=== PATIENT | male | born 1955 | race Caucasian/White ===

== ENCOUNTER 2019-11-28 12:20 | Emergency (ER) | payer OTHER ==
--- OUTSIDE RECORDS SUMMARY | 2019-11-28 12:22 | XMS REPORT | Summary of Care ---
:1955 Author Organization [facility] Address [address] [place] [id number] Care Team Providers Name Role Phone [facility], [facility] Med Primary Care Provider Reason for Referral Radiology Services (STAT) Status Reason Specialty Diagnoses / Referred By Referred To Procedures Contact Contact New Request Diagnostic Diagnoses Hip pain, right Davis, Angelina S, Radiology Procedures XR PELVIS <[address] [place] [address] Radiology Services (STAT) Status Reason Specialty Diagnoses / Referred By Referred To Procedures Contact Contact New Request Diagnostic Diagnoses Hip pain, right Davis, Angelina S, Radiology Procedures XR HIPS 2 VW RIGHT [address] [place] [place] [address] Radiology Services (STAT) Status Reason Specialty Diagnoses / Referred By Referred To Procedures Contact Contact New Request Diagnostic Diagnoses Hip pain, right Davis, Angelina S, Radiology Procedures XR PELVIS <[address] [place] [place] [address] Radiology Services (STAT) Status Reason Specialty Diagnoses / Referred By Referred To Procedures Contact Contact New Request Diagnostic Diagnoses Hip pain, right Davis, Angelina S, Radiology Procedures XR HIPS 2 VW RIGHT [address] [place] [address] Reason for Visit Reason Comments Knee Pain Auth/Cert Status Reason Specialty Diagnoses / Referred By Referred To Procedures Contact Contact [facility] [address] [place] [address] [place] [address] Encounter Details Date Type Department Care Team Description 07/21/2019 Emergency [facility]-Emergency DavisAngelina S, PAC Hip pain, right Department [address] [facility] (Primary Dx) [address] [place] [address] [place] [address] [phone] Allergies Active Allergy Reactions Severity Noted Date Comments Tramadol Hallucinations 03/20/2016 documented as of this encounter (statuses as of 07/21/2019) Medications Medication Sig Dispensed Refills Start Date End Date Status QUEtiapine Take 25 mg by 0 Active (SEROQUEL) 50 mg mouth at bedtime. tablet traZODONE (DESYREL) Take 50 mg by 0 Active 50 mg tablet mouth at bedtime. meloxicam (MOBIC) Take 7.5 mg by 0 Active 7.5 mg tablet mouth daily. amLODIPine (NORVASC) Take 5 mg by mouth 0 Active 5 mg tablet daily. gabapentin Take 2 capsules by 180 capsule 5 03/20/2016 Active (NEURONTIN) 300 mg mouth 3 (three) capsule times daily. naproxen (NAPROSYN) Take 1 tablet by 60 tablet 2 05/12/2016 Active 500 mg tablet mouth 2 (two) times daily with meals. memantine HCl Take by mouth. 0 Active (MEMANTINE ORAL) documented as of this encounter (statuses as of 07/21/2019) Active Problems Problem Noted Date Essential hypertension 03/20/2016 Osteoarthritis of multiple joints 03/20/2016 Cervical disc disease 03/20/2016 Lumbar disc disease 03/20/2016 Bilateral hearing loss 03/20/2016 Insomnia 03/20/2016 PTSD (post-traumatic stress disorder) 03/20/2016 documented as of this encounter (statuses as of 07/21/2019) Social History Tobacco Use Types Packs/Day Years Used Date Former Smoker Quit: 03/20/1983 Smokeless Tobacco: Never Used Alcohol Use Drinks/Week oz/Week Comments Yes occasionally Sex Assigned at Date Recorded Not on file Job Start Date Occupation Industry Not on file Not on file Not on file Travel History Travel Start Travel End No recent travel history available. documented as of this encounter Last Filed Vital Signs Vital Sign Reading Time Taken Comments Blood Pressure 154/97 07/21/2019 2:02 PM CDT Pulse 80 07/21/2019 2:02 PM CDT Temperature 36.9 C (98.4 F) 07/21/2019 2:02 PM CDT Respiratory Rate 16 07/21/2019 2:02 PM CDT Oxygen Saturation 97% 07/21/2019 2:02 PM CDT Inhaled Oxygen Concentration - - Weight 99.8 kg (220 lb) 07/21/2019 2:02 PM CDT Height - - Body Mass Index 30.68 07/31/2018 12:56 PM CDT documented in this encounter Discharge Instructions Angelina Thomson, PAC - 07/21/2019Continue taking the medication you have been prescribed for pain. Follow up with your specialist forfurther evaluation of your hip pain if it continues. Return to the ER if you develop inability to control your urine or bowel movements, if you develop numbness to your groin or if you develop difficulty walking because leg or foot weakness. documented in this encounter Plan of Treatment Health Maintenance Due Date Last Done Comments HEPATITIS C (HCV) SCREEN 1955 DTaP,Tdap,and Td Vaccines (1 - 1973 Tdap) COLONOSCOPY 2004 Zoster Recombinant Vaccine 2004 (SHINGRIX) (1 of 2) INFLUENZA VACCINE (Retired 07/31/2019 version) PNEUMOCOCCAL 0-64 YEARS COMBINED Aged Out No longer eligible based on SERIES patient's age to complete this topic documented as of this encounter Procedures Procedure Name Priority Date/Time Associated Diagnosis Comments XR HIPS 2 VW RIGHT STAT 07/21/2019 3:59 PM Hip pain, right Results for this CDT procedure are in the results section. XR PELVIS <3 VW STAT 07/21/2019 3:59 PM Hip pain, right Results for this CDT procedure are in the results section. NOTICE OF PRIVACY Routine 07/21/2019 1:54 PM PRACTICES CDT documented in this encounter Results XR HIPS 2 VW RIGHT (07/21/2019 3:59 PM CDT) Specimen Narrative Performed At HISTORY:Pain. PACS/VR/DOSE FINDINGS: AP and lateral views of right hip showed no acute fracture or dislocation. Mild degenerative arthritis of the hip joint noted with narrowing of inferomedial joint space, minimal narrowing of upper weightbearing joint space and mild irregularity in the articular edges of acetabulum and inferior edge of the head of the femur. No signs of AVN in the femoral head or aggressive bone lesions seen. CONCLUSIONS: Mild arthritis of right hip. No acute findings. Procedure Note [facility], Radiant Results Inft User - 07/21/2019 4:06 PM CDT HISTORY: Pain. FINDINGS: AP and lateral views of right hip showed no acute fracture or dislocation. Mild degenerative arthritis of the hip joint noted with narrowing of inferomedial joint space, minimal narrowing of upper weightbearing joint space and mild irregularity in the articular edges of acetabulum and inferior edge of the head of the femur. No signs of AVN in the femoral head or aggressive bone lesions seen. CONCLUSIONS: Mild arthritis of right hip. No acute findings. Performing Organization Address City/State/Zipcode Phone Number PACS/VR/DOSE XR PELVIS <3 VW (07/21/2019 3:59 PM CDT) Specimen Narrative Performed At HISTORY:Pain. PACS/VR/DOSE FINDINGS: AP view of the pelvis showed no acute fracture or dislocation. No aggressive bone lesions seen. Degenerative disc disease noted at L4-L5 and L5-S1. Sacroiliac joints appear normal. CONCLUSIONS: No acute fracture or dislocation in AP view of the pelvis. Procedure Note [facility], Radiant Results Inft User - 07/21/2019 4:05 PM CDT HISTORY: Pain. FINDINGS: AP view of the pelvis showed no acute fracture or dislocation. No aggressive bone lesions seen. Degenerative disc disease noted at L4-L5 and L5-S1. Sacroiliac joints appear normal. CONCLUSIONS: No acute fracture or dislocation in AP view of the pelvis. Performing Organization Address City/State/Zipcode Phone Number PACS/VR/DOSE documented in this encounter Visit Diagnoses Diagnosis Hip pain, right - Primary Pain in joint, pelvic region and thigh documented in this encounter Insurance Payer Benefit Plan / Subscriber ID Effective Phone Address Type Group Dates [employer] - MANAGED CHOICE CARE [id number] 2019-Pre Medicare MEDICARE sent Adv PPO [employer] [id number] 2001-P HMO/PPO/POS ADMINISTRATION ADMINISTRATION resent documented as of this encounter
--- OUTSIDE RECORDS SUMMARY | 2019-11-28 12:22 | XMS REPORT | Encounter Summary ---
:1955 Author Reason for Visit Follow Up Visit Instructions 1. Sinusitis prednisone 20 mg tablet Flonase Allergy Relief 50 mcg/actuation nasal spray,suspension 2. Nasal obstruction 3. Hypertrophy of nasal turbinates 4. Hearing loss 5. Tinnitus tympanogram 6. Deviated nasal septum 7. Headache Discussion Note: None recorded.Patient educational handouts: No information available. Plan of Care Patient Instructions Patient discharged with the following per Dr. Colmenares Patient is to use the nasal irrigation and nasogel in each nostril bid for 1-2 months Patient is to start prednisone as directed with food Follow up PRN basis Patient will call back to schedule appt if symptoms are not improved If any other problems patient is to call my office Patient verbalized understanding the instructions given along with my office staff Reminders Provider Appointments None recorded. Lab None recorded. Referral None recorded. Procedures None recorded. Surgeries None recorded. Imaging Tympanogram In-House Results 11/12/2018 Medications Name Start Date allopurinol 100 mg tablet Take 1 tablet every day by oral route. amlodipine 5 mg tablet Take 1 tablet every day by oral route. azelastine 137 mcg (0.1 %) nasal spray aerosol Rohwer 2 sprays twice a day by intranasal route. capsaicin 0.025 % topical cream APPLY TO THE AFFECTED AREA(S) BY TOPICAL ROUTE 3 TIMES PER DAY cyclobenzaprine 10 mg tablet Take 1 tablet 3 times a day by oral route. diclofenac 1 % topical gel APPLY 2 GRAM TO THE AFFECTED AREA(S) BY TOPICAL ROUTE 4 TIMES PER DAY etodolac 400 mg tablet Take 1 tablet twice a day by oral route. Flonase Allergy Relief 50 mcg/actuation nasal spray,suspension Inhale 1 spray twice a day by intranasal route for 30 days. Fluticasone Propionate (Nasal) 50 mcg/DOSE inhaler Rohwer 1 spray every day by intranasal route. ipratropium bromide 0.03 % nasal spray Rohwer 2 sprays twice a day by intranasal route. lidocaine 5 % medicated patch and dimethicone 5 % topical cream memantine 10 mg tablet Take 1 tablet twice a day by oral route. nortriptyline 25 mg capsule Take 1 capsule 3 times a day by oral route. prednisone 20 mg tablet Take one tablet by mouth bid for 7 days with meals then once a day for 7 days with meals trazodone 100 mg tablet Take 1 tablet twice a day by oral route. Medications Administered None recorded. Vitals Height Weight BMI Blood Pressure 5 ft 11 in 239 lbs 33.3 kg/m2 160/101 mm[Hg] Lab Results Date Name Specimen Result Interpretation Description Value Range Status Address 11/12/2018 Tympanogram Right Type A In-House Normal Results: For Internal Use Only Left Type A In-House Normal Results: For Internal Use Only Allergies Code Code System Name Reaction Severity Status Onset 09749 RxNorm Tramadol Active Problems Name Status Onset Date Source Tinnitus Active Encounter Hearing Loss Active Encounter Deviated Nasal Septum Active Encounter Sinusitis Active Encounter Nasal Obstruction Active Encounter Headache Active Encounter Frontal Headache Active Encounter Hypertrophy of Nasal Turbinates Active Encounter Procedures Date Name Performed by Hernia Repair Information not available Procedure on Wrist Information not available 11/12/2018 Tympanogram In-House Results For Internal Use Only [address] Vaccine List None recorded. Social History Smoking Status Former Smoker Past Encounters 11/12/2018 Sinusitis; Nasal Obstruction; Hypertrophy of Nasal Turbinates; Hearing Loss; Tinnitus; Deviated Nasal Septum; Headache Dinorah Colmenares MD: [address] [place] [address], [address], [place] [address], Ph. History of Present Illness None recorded. Review of Systems ENT ROS Reported By: Patient ENMT: ENMT: hearing loss, sinus pressure, congestion, runny nose; ringing in both ears Physical Exam ENT Exam Darrian Focus-No Stethoscope Reported By: Patient
--- OUTSIDE RECORDS SUMMARY | 2019-11-28 12:22 | XMS REPORT ---
:1955 Author Organization [facility] Address [address] [place] [address] Care Team Providers Name Role Phone Unavailable Unavailable Unavailable Payers Payer Name Policy Type Policy Number Effective Date Expiration Date Problems This patient has no known problems. Allergies, Adverse Reactions, Alerts Allergy Name Allergy Status Severity Reaction(s) Onset Inactive Treating Comments Type Date Date Clinician Tricyclic DA Active U 2019-10 Compounds 00:00:0 0 NSAIDS DA Active U 2019-10 (Non-Steroida -13 l 00:00:0 Anti-Inflamma 0 allopurinol DA Active U 2019-10 00:00:0 0 tramadol DA Active U 2019-10 00:00:0 0 Medications This patient has no known medications.
[2019-11-28] MEDS ORDERED: ONDANSETRON 4 MG/2 ML VIAL ONE (13:59)
[2019-11-28] MEDS ORDERED: MORPHINE 2 MG/ML SYR ONE ×2 (13:59→14:38)
[2019-11-28] MEDS ORDERED: NA CHLORIDE 0.9% 1,000 ML ONE (14:00)
[2019-11-28] MEDS ORDERED: CIPROFLOXACIN 400mg IV 400 MG/200 ML BAG IV ONE (14:00)
[2019-11-28] MEDS ORDERED: METRONIDAZOLE 500mg IVPB 500 MG/100 ML BAG IV ONE (14:00)
[2019-11-28 14:15] LABS: Absolute Lymphocytes (CBC) 2.5 K/uL (0.7-4.9); Basophils % 0.7 % (0-1.3); Hematocrit 43.5 % (39.6-49.0); Lymphocytes % 32.6 % (15.3-44.8); MPV 9.5 fL (7.6-11.3); RBC Red Blood Cell Count 4.72 M/uL (4.33-5.43)
[2019-11-28 14:23] LABS: Protime INR 1.01
--- NOTE | 2019-11-28 14:24 | RAD REPORT ---
EXAM DESCRIPTION: RAD - Chest Single View - 11/28/2019 2:15 pm CLINICAL HISTORY: Abdominal pain, abdominal distention COMPARISON: None. TECHNIQUE: AP portable chest image was obtained 1408 hours . FINDINGS: Lungs are clear. Heart and vasculature are normal. No measurable pleural effusion and no p neumothorax. No acute bony abnormality seen. No acute aortic findings suspected. IMPRESSION: No acute cardiopulmonary process.
[2019-11-28 14:40] LABS: ALT/SGPT 29 U/L (12-78); AST/SGOT 23 U/L (15-37); Albumin 4.1 g/dL (3.4-5.0); Alkaline Phosphatase 72 U/L (45-117); BUN Blood Urea Nitrogen 5 mg/dL (7-18); Bicarbonate 28 mmol/L (21-32); Bilirubin Direct 0.2 mg/dL (0-0.2); Glucose Level 94 mg/dL (74-106); Lipase 241 U/L (73-393); NT PRO-BNP 69 pg/mL (<125); Potassium 3.9 mmol/L (3.5-5.1); Protein, Total 6.9 g/dL (6.4-8.2); Sodium Level 142 mmol/L (136-145); Troponin (Emerg Dept Use Only) < 0.02 ng/mL (0.0-0.045)
--- NOTE | 2019-11-28 15:35 | EKG ---
Test Date: 2019-11-28 Test Time: 13:56:17 Shader And Toner: ERIK MEASUREMENT RESULTS: Intervals: Rate: 58 DE: 178 QRSD: 96 QT: 436 QTc: 428 [place]: P: 59 DE: 178 QRS: -5 T: 21 INTERPRETIVE STATEMENTS: Sinus bradycardia Nonspecific T wave abnormality Abnormal ECG No previous ECG available for comparison Electronically Signed On 11-28-19 15:34:20 [employer]FFEE [employer]OP AIDE by Ochoa Zamorano
[2019-11-28 16:06] LABS: Urine Blood NEGATIVE (NEG); Urine Glucose NEGATIVE (NEG); Urine Protein NEGATIVE (NEG); Urine Specific Gravity 1.015 (1.005-1.030)
--- NOTE | 2019-11-28 16:34 | RAD REPORT ---
EXAM DESCRIPTION: CT - Abdomen Pelvis W Contrast - 11/28/2019 4:16 pm CLINICAL HISTORY: Abdominal pain. COMPARISON: None. TECHNIQUE: Computed axial tomography of the abdomen and pelvis was obtained. 100 cc Isovue-300 is ad ministered intravenously. Oral contrast was given. All CT scans are performed using dose optimization technique as appropriate and may include automated exposure control or mA/KV adjustment according to patient size. FINDINGS: Mild hepatic fatty infiltration. Several hypervascular hepatic lesions. The largest measures approxim ately 3.8 centimeters. The spleen, pancreas, adrenals and kidneys appear unremarkable The appendix is normal caliber. There is no evidence of diverticulitis Small umbilical hernia has not neck 17 millimeters. IMPRESSION: Several hypervascular hepatic lesions. It is recommended that the patient have a nonemer gent MRI of the liver Small umbilical hernia
--- NOTE | 2019-11-28 16:39 | ER ---
Nurse's Notes [facility] Name: Layton Correa Age: 64 yrs Sex: Male : 1955 Arrival Date: 11/28/2019 Time: 12:23 Bed 19 Private MD: Diagnosis: Gastrointestinal hemorrhage, unspecified;Abdominal tenderness Presentation: 11/28 12:48 Presenting complaint: Patient states: This AM large Blood clot reported with BM, sg reports having hx of H.Pylori and GERD, as well as heart problems that are treated by a cardio in [place], reports abd pain in the lower quadrants as well. Transition of care: patient was not received from another setting of care. Onset of symptoms was November 28, 2019. Risk Assessment: Do you want to hurt yourself or someone else? Patient reports no desire to harm self or others. Initial Sepsis Screen: Does the patient meet any 2 criteria? No. Patient's initial sepsis screen is negative. Does the patient have a suspected source of infection? Yes: Acute abdominal pain. Care prior to arrival: None. 12:48 Method Of Arrival: Wheelchair 12:48 Acuity: VICTOR M 3 sg Historical: - Allergies: 12:50 No Known Allergies; sg 13:01 tramadol; tw2 13:01 tricycline abx; tw2 - Home Meds: 13:01 aspirin 81 mg Oral chew 1 tab once daily [Active]; pregabalin 100 mg Oral 1 cap daily tw2 [Active]; losartan 100 mg oral tab 1 tab once daily [Active]; metoprolol tartrate 25 mg Oral tab 1 tab once daily [Active]; Cymbalta 20 mg oral cpDR 1 cap 2 times per day [Active]; amlodipine 5 mg tab 1 tab once daily [Active]; memantine 10 mg oral tab 1 tab 2 times per day [Active]; allopurinol 100 mg Oral tab 1 tab once daily [Active]; indomethacin 25 mg Oral cap 1 cap 3 times per day [Active]; - PMHx: 12:50 Bradycardia; Back pain; GERD; sg 13:01 Back pain; BRADYCARDIA; GERD; h. pylori; Hypertension; tw2 - Immunization history:: Adult Immunizations up to date, Adult Immunizations. - Social history:: Smoking status: Patient/guardian denies using tobacco, Smoking status: . - Ebola Screening: : Patient negative for fever greater than or equal to 101.5 degrees Fahrenheit, and additional compatible Ebola Virus Disease symptoms Patient denies exposure to infectious person Patient denies travel to an Ebola-affected area in the 21 days before illness onset No symptoms or risks identified at this time Patient denies travel to an Ebola-affected area in the 21 days before illness onset. Screenin:22 Abuse screen: Denies threats or abuse. Nutritional screening: No deficits noted. tw2 Nutritional screening: No deficits noted. Tuberculosis screening: No symptoms or risk factors identified. Fall Risk Secondary diagnosis (15 points) impaired mobility. Assessment: 12:45 General: Appears in no apparent distress. well groomed, Behavior is calm, cooperative, tw2 appropriate for age. Pain: Complains of pain in abdomen. Neuro: Level of Consciousness is awake, alert, obeys commands, Oriented to person, place, time, situation. Cardiovascular: Heart tones S1 S2 Capillary refill < 3 seconds. Respiratory: Airway is patent Respiratory effort is even, unlabored, Respiratory pattern is regular, symmetrical, Breath sounds are clear bilaterally. GI: Abdomen is round non-distended, obese, Bowel sounds present X 4 quads. Abd is soft X 4 quads. : No signs and/or symptoms were reported regarding the genitourinary system. EENT: No signs and/or symptoms were reported regarding the EENT system. Derm: Skin is dry, Skin temperature is warm. Musculoskeletal: Circulation, motion, and sensation intact. Range of motion: limited in left knee and right knee. 13:51 Reassessment: Patient appears in no apparent distress at this time. No changes from tw2 previously documented assessment. Patient and/or family updated on plan of care and expected duration. Pain level reassessed. Patient is alert, oriented x 3, equal unlabored respirations, skin warm/dry/pink. 14:54 Reassessment: Oral Contrast completed. CT notified. ca1 15:05 Reassessment: Patient appears in no apparent distress at this time. Patient and/or tw2 family updated on plan of care and expected duration. Pain level reassessed. Patient is alert, oriented x 3, equal unlabored respirations, skin warm/dry/pink. Patient states feeling better. 16:22 Reassessment: Patient appears in no apparent distress at this time. No changes from tw2 previously documented assessment. Patient and/or family updated on plan of care and expected duration. Pain level reassessed. Patient is alert, oriented x 3, equal unlabored respirations, skin warm/dry/pink. Vital Signs: 12:49 BP 142 / 70; Pulse 42; Resp 17; Pulse Ox 96% on R/A; Weight 79.83 kg; Height 6 ft. 0 sg in. (182.88 cm); Pain 7/10; 13:50 BP 139 / 92; Pulse 57; Resp 17; Temp 98.1(TE); Pulse Ox 95% on R/A; tw2 15:05 BP 152 / 82; Pulse 60; Resp 17; Pulse Ox 95% on R/A; tw2 16:21 BP 142 / 96; Pulse 59; Resp 17; Pulse Ox 95% on R/A; tw2 12:49 Body Mass Index 23.87 (79.83 kg, 182.88 cm) ED Course: 12:23 Patient arrived in ED. rg4 12:33 Arm band placed on. sg 12:49 Triage completed. sg 12:50 Lisseth Landry RN is Primary Nurse. tw2 12:50 Christopher Craig MD is Attending Physician. tasneem 13:48 Patient has correct armband on for positive identification. Placed in gown. Bed in low mh5 position. Call light in reach. Side rails up X 1. Adult w/ patient. Warm blanket given. playground monitor on. Pulse ox on. NIBP on. 14:07 Initial lab(s) drawn, by me, sent to lab. Inserted saline lock: 20 gauge in right mh5 antecubital area, using aseptic technique. 14:08 Lipase Sent. 5 14:08 Basic Metabolic Panel Sent. 5 14:08 CBC with Diff Sent. 5 14:08 LFT's Sent. 5 14:08 Magnesium Sent. 5 14:09 NT PRO-BNP Sent. 5 14:09 Troponin (emerg Dept Use Only) Sent. 5 14:09 PT-INR Sent. 5 14:11 XRAY Chest (1 view) In Process Unspecified. EDMS 16:[address] via wheelchair. vm2 16:16 CT Abd/Pelvis - PO and IV Contrast In Process Unspecified. EDMS 16:37 Filemon Garcia MD is Referral Physician. tasneem 16:56 Awaiting transportation, Awaiting: prior to discharge. tw2 17:37 No provider procedures requiring assistance completed. IV discontinued, intact, tw2 bleeding controlled, No redness/swelling at site. Pressure dressing applied. Administered Medications: 14:05 Drug: Zofran 4 mg Route: IVP; Site: right antecubital; tw2 14:43 Follow up: Response: No adverse reaction; Nausea is decreased tw2 14:07 Drug: morphine 2 mg {Note: rass 0.} Route: IVP; Site: right antecubital; tw2 14:38 Follow up: Response: No adverse reaction; Pain is unchanged, physician notified; RASS: tw2 Alert and Calm (0) 14:09 Drug: NS 0.9% 1000 ml Route: IV; Rate: 1 bolus; Site: right antecubital; tw2 15:50 Follow up: Response: No adverse reaction; IV Status: Completed infusion; IV Intake: tw2 1000ml 14:09 Drug: Flagyl 500 mg Volume: 100 ml; Route: IVPB; Rate: 200 ml/hr; Infused Over: 30 tw2 mins; Site: right antecubital; 14:43 Follow up: Response: No adverse reaction; IV Status: Completed infusion tw2 14:40 Drug: morphine 2 mg Route: IVP; Site: right antecubital; tw2 16:55 Follow up: Response: No adverse reaction; Pain is decreased; RASS: Alert and Calm (0) tw2 14:43 Drug: Cipro 400 mg Volume: 200 ml; Route: IVPB; Infused Over: 60 mins; Site: right tw2 antecubital; 15:44 Follow up: Response: No adverse reaction; IV Status: Completed infusion tw2 Intake: 15:50 IV: 1000ml; Total: 1000ml. tw2 Output: 15:34 Urine: 400ml (Voided); Total: 400ml. ca1 16:21 Urine: 600ml (Voided); Total: 1000ml. tw2 Outcome: 16:38 Discharge ordered by . tasneem 17:37 Patient left the ED. tw2 17:37 Discharged to home ambulatory, personal aid tw2 17:37 Condition: stable 17:37 Discharge instructions given to patient, Instructed on discharge instructions, follow up and referral plans. no drinking with medication, no driving heavy equipment, medication usage, Demonstrated understanding of instructions, follow-up care, medications, Prescriptions given X 4. Signatures: Dispatcher [employer] Eros Paredes RN RN Christopher Still MD MD cha Wise, Tara, RN RN tw2 [facility] Rosa Ricketts [facility] Naomie Cortez [facility] Ling Barillas RN RN ca1 Corrections: (The following items were deleted from the chart) 12:42 12:36 BP 128 / 94; Pulse 101bpm; Resp 18bpm; Pulse Ox 98% RA; Temp 98.8F; 107.05 kg; sg Height 5 ft. 2 in.; BMI: 43.1; Pain 8/10; sg 14:12 13:50 BP 139 / 92; Pulse 57bpm; Resp 17bpm; Pulse Ox 95% RA; tw2 tw2
--- NOTE | 2019-11-28 16:40 | EDPHYS ---
Physician Documentation [facility] Name: Layton Correa Age: 64 yrs Sex: Male : 1955 Arrival Date: 11/28/2019 Time: 12:23 Bed 19 Private MD: ED Physician Christopher Craig HPI: 11/28 13:45 This 64 yrs old Male presents to ER via Wheelchair with complaints of tasneem Abdominal Pain, Rectal Bleeding. 13:45 The patient presents to the emergency department with bleeding from the rectum/anus. tasneem Onset: The symptoms/episode began/occurred yesterday. Context: the patient has no known special context relating to the rectal area complaint(s). Modifying factors: The symptoms are alleviated by nothing, The symptoms are aggravated by nothing. Associate signs and symptoms: Pertinent positives: abdominal pain in the right upper quadrant and left upper quadrant. The patient has not experienced similar symptoms in the past. Historical: - Allergies: 12:50 No Known Allergies; sg 13:01 tramadol; tw2 13:01 tricycline abx; tw2 - Home Meds: 13:01 aspirin 81 mg Oral chew 1 tab once daily [Active]; pregabalin 100 mg Oral 1 cap daily tw2 [Active]; losartan 100 mg oral tab 1 tab once daily [Active]; metoprolol tartrate 25 mg Oral tab 1 tab once daily [Active]; Cymbalta 20 mg oral cpDR 1 cap 2 times per day [Active]; amlodipine 5 mg tab 1 tab once daily [Active]; memantine 10 mg oral tab 1 tab 2 times per day [Active]; allopurinol 100 mg Oral tab 1 tab once daily [Active]; indomethacin 25 mg Oral cap 1 cap 3 times per day [Active]; - PMHx: 12:50 Bradycardia; Back pain; GERD; sg 13:01 Back pain; BRADYCARDIA; GERD; h. pylori; Hypertension; tw2 - Immunization history:: Adult Immunizations up to date, Adult Immunizations. - Social history:: Smoking status: Patient/guardian denies using tobacco, Smoking status: . - Ebola Screening: : Patient negative for fever greater than or equal to 101.5 degrees Fahrenheit, and additional compatible Ebola Virus Disease symptoms Patient denies exposure to infectious person Patient denies travel to an Ebola-affected area in the 21 days before illness onset No symptoms or risks identified at this time Patient denies travel to an Ebola-affected area in the 21 days before illness onset. ROS: 13:46 Constitutional: Negative for fever, chills, and weight loss, Eyes: Negative for injury, tasneem pain, redness, and discharge, ENT: Negative for injury, pain, and discharge, Neck: Negative for injury, pain, and swelling, Cardiovascular: Negative for chest pain, palpitations, and edema, Respiratory: Negative for shortness of breath, cough, wheezing, and pleuritic chest pain, Back: Negative for injury and pain, : Negative for injury, bleeding, discharge, and swelling, MS/Extremity: Negative for injury and deformity, Skin: Negative for injury, rash, and discoloration, Neuro: Negative for headache, weakness, numbness, tingling, and seizure, Psych: Negative for depression, anxiety, suicide ideation, homicidal ideation, and hallucinations, Allergy/Immunology: Negative for hives, rash, and allergies, Endocrine: Negative for neck swelling, polydipsia, polyuria, polyphagia, and marked weight changes, Hematologic/Lymphatic: Negative for swollen nodes, abnormal bleeding, and unusual bruising. 13:46 Abdomen/GI: Positive for abdominal pain, abdominal cramps, of the right upper quadrant and left upper quadrant. Exam: 13:46 Constitutional: This is a well developed, well nourished patient who is awake, alert, tasneem and in no acute distress. Head/Face: Normocephalic, atraumatic. Eyes: Pupils equal round and reactive to light, extra-ocular motions intact. Lids and lashes normal. Conjunctiva and sclera are non-icteric and not injected. Cornea within normal limits. Periorbital areas with no swelling, redness, or edema. ENT: Nares patent. No nasal discharge, no septal abnormalities noted. Tympanic membranes are normal and external auditory canals are clear. Oropharynx with no redness, swelling, or masses, exudates, or evidence of obstruction, uvula midline. Mucous membranes moist. Neck: Trachea midline, no thyromegaly or masses palpated, and no cervical lymphadenopathy. Supple, full range of motion without nuchal rigidity, or vertebral point tenderness. No Meningismus. Chest/axilla: Normal chest wall appearance and motion. Nontender with no deformity. No lesions are appreciated. Cardiovascular: Regular rate and rhythm with a normal S1 and S2. No gallops, murmurs, or rubs. Normal PMI, no JVD. No pulse deficits. Respiratory: Lungs have equal breath sounds bilaterally, clear to auscultation and percussion. No rales, rhonchi or wheezes noted. No increased work of breathing, no retractions or nasal flaring. Back: No spinal tenderness. No costovertebral tenderness. Full range of motion. Male : Normal genitalia with no discharge or lesions. Skin: Warm, dry with normal turgor. Normal color with no rashes, no lesions, and no evidence of cellulitis. MS/ Extremity: Pulses equal, no cyanosis. Neurovascular intact. Full, normal range of motion. Neuro: Awake and alert, GCS 15, oriented to person, place, time, and situation. Cranial nerves II-XII grossly intact. Motor strength 5/5 in all extremities. Sensory grossly intact. Cerebellar exam normal. Normal gait. Psych: Awake, alert, with orientation to person, place and time. Behavior, mood, and affect are within normal limits. 13:46 Abdomen/GI: Inspection: distension, Bowel sounds: normal, Palpation: mild abdominal tenderness, in the right upper quadrant, left upper quadrant, right lower quadrant and left lower quadrant, Rectal exam: is unremarkable, Prostate: normal, rectal tone normal, Stool: guaiac negative, hemorrhoid(s), are not appreciated, mass, is not appreciated, Liver: no appreciated palpable abnormalities, Hernia: not appreciated. 16:17 Abdomen/GI: Rectal exam: Stool: tasneem Vital Signs: 12:49 BP 142 / 70; Pulse 42; Resp 17; Pulse Ox 96% on R/A; Weight 79.83 kg; Height 6 ft. 0 sg in. (182.88 cm); Pain 7/10; 13:50 BP 139 / 92; Pulse 57; Resp 17; Temp 98.1(TE); Pulse Ox 95% on R/A; tw2 15:05 BP 152 / 82; Pulse 60; Resp 17; Pulse Ox 95% on R/A; tw2 16:21 BP 142 / 96; Pulse 59; Resp 17; Pulse Ox 95% on R/A; tw2 12:49 Body Mass Index 23.87 (79.83 kg, 182.88 cm) MDM: 12:50 Patient medically screened. [facility] 13:47 Data reviewed: vital signs, nurses notes, lab test result(s), EKG, radiologic studies, [facility] CT scan, plain films. 11/28 13:45 Order name: Basic Metabolic Panel; Complete Time: 14:49 [facility] 11/28 13:45 Order name: CBC with Diff; Complete Time: 14:33 [facility] 11/28 13:45 Order name: LFT's; Complete Time: 14:49 [facility] 11/28 13:45 Order name: Magnesium; Complete Time: 14:49 [facility] 11/28 13:45 Order name: NT PRO-BNP; Complete Time: 14:49 [facility] 11/28 13:45 Order name: PT-INR; Complete Time: 14:33 [facility] 11/28 13:45 Order name: Troponin (emerg Dept Use Only); Complete Time: 14:49 [facility] 11/28 13:45 Order name: XRAY Chest (1 view); Complete Time: 14:33 [facility] 11/28 13:45 Order name: Lipase; Complete Time: 14:49 [facility] 11/28 13:45 Order name: CT Abd/Pelvis - PO and IV Contrast; Complete Time: 16:37 [facility] 11/28 13:58 Order name: Urine Dipstick--Ancillary (enter results); Complete Time: 16:16 11/28 13:45 Order name: EKG; Complete Time: 13:46 [facility] 11/28 13:45 Order name: Cardiac monitoring; Complete Time: 13:50 [facility] 11/28 13:45 Order name: EKG - Nurse/Tech; Complete Time: 14:09 [facility] 11/28 13:45 Order name: IV Saline Lock; Complete Time: 15:05 [facility] 11/28 13:45 Order name: Labs collected and sent; Complete Time: 14:09 [facility] 11/28 13:45 Order name: O2 Per Protocol; Complete Time: 13:50 [facility] 11/28 13:45 Order name: O2 Sat Monitoring; Complete Time: 13:50 [facility] 11/28 13:45 Order name: Urine Dipstick-Ancillary (obtain specimen); Complete Time: 13:49 [facility] Administered Medications: 14:05 Drug: Zofran 4 mg Route: IVP; Site: right antecubital; tw2 14:43 Follow up: Response: No adverse reaction; Nausea is decreased tw2 14:07 Drug: morphine 2 mg {Note: rass 0.} Route: IVP; Site: right antecubital; tw2 14:38 Follow up: Response: No adverse reaction; Pain is unchanged, physician notified; RASS: tw2 Alert and Calm (0) 14:09 Drug: NS 0.9% 1000 ml Route: IV; Rate: 1 bolus; Site: right antecubital; tw2 15:50 Follow up: Response: No adverse reaction; IV Status: Completed infusion; IV Intake: tw2 1000ml 14:09 Drug: Flagyl 500 mg Volume: 100 ml; Route: IVPB; Rate: 200 ml/hr; Infused Over: 30 tw2 mins; Site: right antecubital; 14:43 Follow up: Response: No adverse reaction; IV Status: Completed infusion tw2 14:40 Drug: morphine 2 mg Route: IVP; Site: right antecubital; tw2 16:55 Follow up: Response: No adverse reaction; Pain is decreased; RASS: Alert and Calm (0) tw2 14:43 Drug: Cipro 400 mg Volume: 200 ml; Route: IVPB; Infused Over: 60 mins; Site: right tw2 antecubital; 15:44 Follow up: Response: No adverse reaction; IV Status: Completed infusion tw2 Disposition: 11/28/19 16:38 Discharged to Home. Impression: Gastrointestinal hemorrhage, unspecified, Abdominal tenderness. - Condition is Stable. - Discharge Instructions: Abdominal Pain, Adult, Rectal Bleeding, Abdominal Pain, Adult, [id number], Gastrointestinal Bleeding, [id number]. - Prescriptions for Bentyl 20 mg Oral Tablet - take 1 tablet by ORAL route every 6 hours As needed; 20 tablet. Flagyl 500 mg Oral Tablet - take 1 tablet by ORAL route every 8 hours for 7 days; 28 tablet. Pepcid 20 mg Oral Tablet - take 1 tablet by ORAL route every 12 hours for 10 days; 20 tablet. Cipro 500 mg Oral Tablet - take 1 tablet by ORAL route every 12 hours for 7 days; 14 tablet. - Medication Reconciliation Form, Thank You Letter, Antibiotic Education, Prescription Opioid Use form. - Follow up: Private Physician; When: 2 - 3 days; Reason: Recheck today's complaints, Continuance of care, Re-evaluation by your physician. Follow up: Filemon Garcia MD; When: 2 - 3 days; Reason: Recheck today's complaints, Continuance of care, Re-evaluation by your physician. - Problem is new. - Symptoms have improved. Signatures: Dispatcher [employer] EDEros Winkler, RN RN Christopher Still MD MD cha Wise, Tara RN RN tw2 Corrections: (The following items were deleted from the chart) 17:37 16:38 11/28/2019 16:38 Discharged to Home. Impression: Gastrointestinal hemorrhage, tw2 unspecified; Abdominal tenderness. Condition is Stable. Forms are Medication Reconciliation Form, Thank You Letter, Antibiotic Education, Prescription Opioid Use. Follow up: Private Physician; When: 2 - 3 days; Reason: Recheck today's complaints, Continuance of care, Re-evaluation by your physician. Follow up: Filemon Garcia; When: 2 - 3 days; Reason: Recheck today's complaints, Continuance of care, Re-evaluation by your physician. Problem is new. Symptoms have improved. tasneem
[2019-11-28 17:48] VITALS: O2SAT 95
[2019-11-28 18:01] VITALS: TEMP 97.7
[2019-11-28 18:09] VITALS: BP 166/103
== END 2019-11-28 17:37 | disposition home or self-care (01) ==
LOC: ER 12:20
DX: K92.2 Gastrointestinal hemorrhage, unspecified (principal); I10 Essential (primary) hypertension; R00.1 Bradycardia, unspecified; Z79.82 Long term (current) use of aspirin; Z88.1 Allergy status to other antibiotic agents; Z88.6 Allergy status to analgesic agent
CPT/HCPCS: 96365; 96367; 93005; 85025; 80048; 36415; 83735; 85610; 80076; 81003; 84484; 83690; 83880; 74177; 71045; 96375; 99285; Q9967; J2270 ×2; J7030; J2405; J0744